=== PATIENT | female | born 1955 | race Caucasian/White ===

== ENCOUNTER → 2017-05-31 | Outpatient (CLI) | payer BC ==
[~2017-05-31] MED LIST: ENBREL50 MG/ML SC; LEXAPRO20 MG PO; MOTRIN 200200 MG/TAB PO; PRAVACHOL 40MG40 MG PO; SENNA8.6 MG PO; ST JOHN S WOR; SYNTHROID0.075 MG/T PO; XANAX .25M0.25 MG/TA PO
== END ==
LOC: MC.RAD 05-30 09:00
DX: Z12.31 Encounter for screening mammogram for malignant neoplasm of breast (principal)

== ENCOUNTER 2018-01-31 11:09 | Emergency (ER) | payer BC ==
[~2018-01-31] VITALS: Ht 167.6 cm; Wt 70.5 kg
[2018-01-31 11:44] LABS: BASO % 0.2 % (0.0-2.0); GRAN # 7.9 (1.4-6.5); GRAN % 87.7 % (42.2-75.2); HEMATOCRIT 40.5 % (37.0-47.0); HEMOGLOBIN 13.6 g/dl (12.5-16.0); LYMPH # 0.7 (1.2-3.4); LYMPH % 7.9 % (20.0-51.0); MEAN CELL VOLUME 82 fl (80.0-100.0); MEAN CORPUSCULAR HEMOGLOBIN 27 pg (27.0-31.0); MEAN CORPUSCULAR HGB CONC 34 g/dl (33.0-37.0); MEAN PLATELET VOLUME 9.1 fl (7.4-10.4); MONO # 0.3 (0.1-0.6); MONO % 3.6 % (1.7-9.3); PLATELET COUNT 267 K/mm3 (130-400); RED BLOOD COUNT 4.96 M/mm3 (4.10-5.30); REDCELL DISTRIBUTION WIDTH-CV 15.6 % (11.5-14.5)
[2018-01-31 11:54] LABS: ALBUMIN 4.2 gm/dL (3.5-5.0); BILIRUBIN,TOTAL 0.8 mg/dL (0.0-1.0); CALCIUM 8.9 mg/dL (8.4-10.2); CREATININE, serum 0.77 mg/dL (0.52-1.25); POTASSIUM 3.9 mmol/L (3.4-5.0); TOTAL PROTEIN 8.5 gm/dL (6.4-8.2)
[2018-01-31] MEDS ORDERED: HUMIRA40 MG/0.8 SQ (12:09)
[2018-01-31 13:22] LABS: COLLECTION METHOD CLEAN CATCH
[2018-01-31 13:24] VITALS: TEMP 99.6
[2018-01-31 13:28] LABS: MUCOUS Present /lpf; PH 5 (5-8); SQUAMOUS EPITHELIAL 0-2 /hpf; URINE APPEARANCE Hazy; URINE BACTERIA None Seen /hpf; URINE BILIRUBIN Negative (NEGATIVE); URINE BLOOD 2+ (NEGATIVE); URINE COLOR Yellow; URINE GLUCOSE Negative (NEGATIVE); URINE KETONE 2+ (NEGATIVE); URINE LEUKOCYTE ESTERASE Negative (NEGATIVE); URINE NITRATE Negative (NEGATIVE); URINE PROTEIN(semi-quant) 2+ (NEGATIVE); URINE RBC 20-50 /hpf
[2018-01-31] MEDS ORDERED: OMNICEF 300MG300 MG PO (13:34)
[2018-01-31 13:49] VITALS: BP 123/80; PULSE 100
== END 2018-01-31 13:50 | disposition home or self-care (01) ==
LOC: COL.ER 11:09
PROVIDERS: Emergency Medicine
DX: R50.9 Fever, unspecified (principal); R31.9 Hematuria, unspecified; E03.9 Hypothyroidism, unspecified; E78.00 Pure hypercholesterolemia, unspecified; R74.0 Nonspecific elevation of levels of transaminase and lactic acid dehydrogenase [LDH]
CPT/HCPCS: J7030

== ENCOUNTER 2018-02-03 17:35 | Inpatient (IN) | payer BC ==
[~2018-02-03] VITALS: Ht 167.6 cm; Wt 75.1 kg
[~2018-02-03 17:35] MED LIST changes: +HUMIRA40 MG/0.8 SQ; +OMNICEF 300MG300 MG PO
[2018-02-03 19:14] LABS: BASO % 0.3 % (0.0-2.0); GRAN # 2.9 (1.4-6.5); GRAN % 78.8 % (42.2-75.2); HEMOGLOBIN 11.2 g/dl (12.5-16.0); LYMPH # 0.5 (1.2-3.4); LYMPH % 12.6 % (20.0-51.0); MEAN CELL VOLUME 81 fl (80.0-100.0); MEAN CORPUSCULAR HEMOGLOBIN 28 pg (27.0-31.0); MEAN CORPUSCULAR HGB CONC 34 g/dl (33.0-37.0); MEAN PLATELET VOLUME 9.9 fl (7.4-10.4); MONO # 0.1 (0.1-0.6); MONO % 1.6 % (1.7-9.3); PLATELET COUNT 156 K/mm3 (130-400); RED BLOOD COUNT 4.08 M/mm3 (4.10-5.30); REDCELL DISTRIBUTION WIDTH-CV 16.1 % (11.5-14.5)
[2018-02-03 19:15] LABS: HEMATOCRIT 33.1 % (37.0-47.0)
[2018-02-03 19:19] LABS: ALBUMIN 3.1 gm/dL (3.5-5.0); BILIRUBIN,TOTAL 1.7 mg/dL (0.0-1.0); CALCIUM 8.2 mg/dL (8.4-10.2); CREATININE, serum 1.64 mg/dL (0.52-1.25); TOTAL PROTEIN 6.9 gm/dL (6.4-8.2)
[2018-02-03 22:42] LABS: INR 1.1 (0.8-3.0); PROTHROMBIN TIME 12.8 SECONDS (9.7-12.8)
[2018-02-04] VITALS (211 sets, daily range): BP systolic 84–111; BP diastolic 39–66; PULSE 100–133; TEMP 98–103.6; O2SAT 74–100
[2018-02-04 07:36] LABS: HEMOGLOBIN 10.7 g/dl (12.5-16.0); MEAN CELL VOLUME 80 fl (80.0-100.0); MEAN CORPUSCULAR HEMOGLOBIN 27 pg (27.0-31.0); MEAN CORPUSCULAR HGB CONC 34 g/dl (33.0-37.0); MEAN PLATELET VOLUME 10.2 fl (7.4-10.4); PLATELET COUNT 139 K/mm3 (130-400); RED BLOOD COUNT 3.91 M/mm3 (4.10-5.30); REDCELL DISTRIBUTION WIDTH-CV 15.9 % (11.5-14.5)
[2018-02-04 07:38] LABS: HEMATOCRIT 31.1 % (37.0-47.0)
[2018-02-04 07:44] LABS: ALANINE AMINOTRANSFERASE 286 U/L (9-52); ALBUMIN 2.8 gm/dL (3.5-5.0); ALKALINE PHOSPHATASE 635 U/L (50-136); ANION GAP 14 mmol/L (7-16); AST,SGOT 469 U/L (15-37); BILIRUBIN,TOTAL 1.7 mg/dL (0.0-1.0); BLOOD UREA NITROGEN 19 mg/dL (7-17); CALCIUM 7.5 mg/dL (8.4-10.2); CARBON DIOXIDE 17 mmol/L (22-30); CHLORIDE 101 mmol/L (98-107); CHOLESTEROL 117 mg/dL (120-200); CHOLESTEROL RISK RATIO 10.6; CREATININE, serum 1.26 mg/dL (0.52-1.25); GLUCOSE 81 mg/dL (74-106); POTASSIUM 3.1 mmol/L (3.4-5.0); SODIUM 131 mmol/L (137-145); TOTAL PROTEIN 6.2 gm/dL (6.4-8.2)
[2018-02-04 07:55] LABS: BILIRUBIN,DIRECT 1.4 mg/dL (0.0-0.4); TRIGLYCERIDE 710 mg/dL
[2018-02-04 09:03] LABS: BAND 57 % (0-10); LYMPHOCYTE 15 % (20.0-51.0); NEUTROPHILS 26 % (42.0-75.2); PLATELET ESTIMATE NORMAL (NORMAL); ROULEAUX 1+
[2018-02-04 12:39] LABS: MAGNESIUM 1.9 mg/dL (1.6-2.3)
[2018-02-04 12:52] LABS: HIV 1/2 Antibodies Non-Reactive; HIV-1p24 Antigen Non-Reactive
[2018-02-04 16:38] LABS: COLLECTION METHOD CLEAN CATCH
[2018-02-04 16:45] LABS: PH 6 (5-8); SQUAMOUS EPITHELIAL 0-2 /hpf; URINE APPEARANCE Clear; URINE BACTERIA None Seen /hpf; URINE BILIRUBIN Negative (NEGATIVE); URINE BLOOD 1+ (NEGATIVE); URINE COLOR Yellow; URINE GLUCOSE Negative (NEGATIVE); URINE KETONE Negative (NEGATIVE); URINE LEUKOCYTE ESTERASE Negative (NEGATIVE); URINE NITRATE Negative (NEGATIVE); URINE PROTEIN(semi-quant) Negative (NEGATIVE); URINE RBC 0-2 /hpf; URINE UROBILINOGEN Negative (NEGATIVE)
[2018-02-04 17:22] LABS: ARTERIAL BLD GAS O2 SATURATION 87.8 % (92-100); ARTERIAL BLD GAS TCO2 CT 14.8; ARTERIAL BLOOD GAS BASE EXCESS -9.1 (-2-2); ARTERIAL BLOOD GAS HCO3 14.1 meq/L (22-26); ARTERIAL BLOOD GAS PO2 52.3 mmHg (80-100); ARTERIAL BLOOD GAS pH 7.41 (7.35-7.45)
[2018-02-04 17:23] LABS: ARTERIAL BLOOD GAS PCO2 22.9 mmHg (35-45)
[2018-02-04 19:12] LABS: ANION GAP 10 mmol/L (7-16); BLOOD UREA NITROGEN 16 mg/dL (7-17); CARBON DIOXIDE 17 mmol/L (22-30); CHLORIDE 107 mmol/L (98-107); CREATININE, serum 1.24 mg/dL (0.52-1.25); GLUCOSE 81 mg/dL (74-106); MAGNESIUM 1.6 mg/dL (1.6-2.3); PHOSPHOROUS 2.8 mg/dL (2.5-4.5); SODIUM 134 mmol/L (137-145)
[2018-02-04 19:15] LABS: ACETAMINOPHEN < 10 ug/mL (10-30); SALICYLATE < 1.0 mg/dL
[2018-02-04 19:23] LABS: TROPONIN-I 0.015 ng/mL (0.000-0.034)
[2018-02-04 19:32] LABS: INR 1.6 (0.8-3.0); PROTHROMBIN TIME 17.9 SECONDS (9.7-12.8)
[2018-02-05] VITALS: BP 95/53; PULSE 98; TEMP 97.2
[2018-02-05 04:00] VITALS: BP 102/54; PULSE 110; TEMP 97.6
[2018-02-05 05:47] LABS: INR 1.2 (0.8-3.0); PROTHROMBIN TIME 13.9 SECONDS (9.7-12.8)
[2018-02-05 05:51] LABS: MEAN CELL VOLUME 80 fl (80.0-100.0); MEAN CORPUSCULAR HGB CONC 35 g/dl (33.0-37.0); PLATELET COUNT 97 K/mm3 (130-400); RED BLOOD COUNT 3.46 M/mm3 (4.10-5.30); REDCELL DISTRIBUTION WIDTH-CV 16.8 % (11.5-14.5)
[2018-02-05 05:52] LABS: HEMATOCRIT 27.5 % (37.0-47.0); HEMOGLOBIN 9.5 g/dl (12.5-16.0); MEAN CORPUSCULAR HEMOGLOBIN 27 pg (27.0-31.0)
[2018-02-05 05:57] LABS: ALBUMIN 2.3 gm/dL (3.5-5.0); BILIRUBIN,TOTAL 2.5 mg/dL (0.0-1.0); CALCIUM 7.4 mg/dL (8.4-10.2); CREATININE, serum 1.06 mg/dL (0.52-1.25); TOTAL PROTEIN 5.3 gm/dL (6.4-8.2)
[2018-02-05 08:00] VITALS: BP 129/73; PULSE 113; TEMP 97.1
[2018-02-05 08:04] LABS: BAND 50 % (0-10); LYMPHOCYTE 4 % (20.0-51.0); NEUTROPHILS 46 % (42.0-75.2); PLATELET ESTIMATE DECREASED (NORMAL)
[2018-02-05 12:00] VITALS: BP 107/81; PULSE 114; TEMP 98
[2018-02-05 16:00] VITALS: BP 105/78; PULSE 113; TEMP 97.9
[2018-02-05 20:00] VITALS: BP 126/92; PULSE 137; TEMP 98.2
[2018-02-06] VITALS: BP 135/95; PULSE 114; TEMP 97.7
[2018-02-06 04:00] VITALS: BP 129/80; PULSE 108; TEMP 98.1
[2018-02-06 05:17] LABS: MEAN CELL VOLUME 79 fl (80.0-100.0); MEAN CORPUSCULAR HGB CONC 35 g/dl (33.0-37.0); MEAN PLATELET VOLUME 10.4 fl (7.4-10.4); PLATELET COUNT 79 K/mm3 (130-400); RED BLOOD COUNT 3.57 M/mm3 (4.10-5.30); REDCELL DISTRIBUTION WIDTH-CV 16.8 % (11.5-14.5)
[2018-02-06 05:19] LABS: HEMATOCRIT 28.1 % (37.0-47.0); HEMOGLOBIN 9.7 g/dl (12.5-16.0); MEAN CORPUSCULAR HEMOGLOBIN 27 pg (27.0-31.0)
[2018-02-06 05:21] LABS: PROTHROMBIN TIME 11.7 SECONDS (9.7-12.8)
[2018-02-06 05:28] LABS: ALBUMIN 2.2 gm/dL (3.5-5.0); BILIRUBIN,TOTAL 2.2 mg/dL (0.0-1.0); CALCIUM 7.1 mg/dL (8.4-10.2); CREATININE, serum 0.89 mg/dL (0.52-1.25); POTASSIUM 3.1 mmol/L (3.4-5.0); TOTAL PROTEIN 5.2 gm/dL (6.4-8.2)
[2018-02-06 05:49] LABS: BAND 11 % (0-10); LYMPHOCYTE 24 % (20.0-51.0); NEUTROPHILS 63 % (42.0-75.2)
[2018-02-06 05:52] LABS: TARGET CELLS 1+
[2018-02-06 05:53] LABS: ANISOCYTOSIS 1+
[2018-02-06 07:12] VITALS: BP 137/89; PULSE 105; TEMP 98.8
[2018-02-06 08:15] LABS: PATHOLOGY DIFF REVIEW OK +
[2018-02-06 11:24] VITALS: BP 131/69; PULSE 101; TEMP 98.5
[2018-02-06 16:08] LABS: CSF APPEARANCE CLEAR; CSF COLOR COLORLESS; CSF RBC 18 /mm3 (0-0)
[2018-02-06 16:12] LABS: CSF MONONUCLEAR 100 % (70-100); CSF POLYMORPHONUCLEAR 0 % (0-6)
[2018-02-06 16:39] VITALS: BP 142/80; PULSE 102; TEMP 98.2
[2018-02-06 16:39] LABS: TOTAL PROTEIN,CSF 50 mg/dL (15-45)
[2018-02-06 20:57] VITALS: BP 135/69; PULSE 107; TEMP 98
[2018-02-07] VITALS (7 sets, daily range): BP systolic 109–145; BP diastolic 71–93; PULSE 60–108; TEMP 97.9–98.5
[2018-02-07 06:08] LABS: ALBUMIN 2.2 gm/dL (3.5-5.0); BILIRUBIN,TOTAL 1.3 mg/dL (0.0-1.0); CREATININE, serum 0.79 mg/dL (0.52-1.25); POTASSIUM 3.5 mmol/L (3.4-5.0); TOTAL PROTEIN 5.1 gm/dL (6.4-8.2)
[2018-02-07 06:13] LABS: MEAN CELL VOLUME 81 fl (80.0-100.0); MEAN CORPUSCULAR HGB CONC 34 g/dl (33.0-37.0); MEAN PLATELET VOLUME 11.3 fl (7.4-10.4); PLATELET COUNT 61 K/mm3 (130-400); REDCELL DISTRIBUTION WIDTH-CV 17.2 % (11.5-14.5)
[2018-02-07 06:14] LABS: HEMATOCRIT 27.4 % (37.0-47.0); HEMOGLOBIN 9.2 g/dl (12.5-16.0); MEAN CORPUSCULAR HEMOGLOBIN 27 pg (27.0-31.0)
[2018-02-07 06:49] LABS: INR 1.1 (0.8-3.0); PROTHROMBIN TIME 12.6 SECONDS (9.7-12.8)
[2018-02-07 07:46] LABS: BAND 5 % (0-10); HYPOCHROMIA 1+; LYMPHOCYTE 13 % (20.0-51.0); NEUTROPHILS 44 % (42.0-75.2); PLATELET ESTIMATE DECREASED (NORMAL)
[2018-02-07 16:47] LABS: PATHOLOGY DIFF REVIEW OK +
[2018-02-07 23:17] LABS: E.CHAFFEENSIS IGG AB <1:64 titer (<1:64)
[2018-02-07 23:22] LABS: ANAPLASMA PHAGOCYTOPHILA IGG <1:64 titer (<1:64)
[2018-02-08 05:33] VITALS: BP 140/85; PULSE 101; TEMP 97.4
[2018-02-08 07:49] LABS: MEAN CELL VOLUME 81 fl (80.0-100.0); MEAN CORPUSCULAR HGB CONC 33 g/dl (33.0-37.0); MEAN PLATELET VOLUME 11.8 fl (7.4-10.4); PLATELET COUNT 96 K/mm3 (130-400); REDCELL DISTRIBUTION WIDTH-CV 17.2 % (11.5-14.5)
[2018-02-08 07:50] LABS: HEMATOCRIT 27.4 % (37.0-47.0); HEMOGLOBIN 9.1 g/dl (12.5-16.0); MEAN CORPUSCULAR HEMOGLOBIN 27 pg (27.0-31.0)
[2018-02-08 07:57] LABS: CALCIUM 7.1 mg/dL (8.4-10.2); CREATININE, serum 0.7 mg/dL (0.52-1.25); POTASSIUM 3.3 mmol/L (3.4-5.0)
[2018-02-08 08:07] LABS: BAND 3 % (0-10); LYMPHOCYTE 38 % (20.0-51.0); METAMYELOCYTE 1 % (0-0); NEUTROPHILS 56 % (42.0-75.2); PLATELET ESTIMATE DECREASED (NORMAL)
[2018-02-08 08:08] LABS: HYPOCHROMIA 1+
[2018-02-08 08:21] VITALS: BP 142/87; PULSE 99; TEMP 98.1
[2018-02-08 11:43] VITALS: BP 116/74; PULSE 99; TEMP 97.7
[2018-02-08 16:45] VITALS: BP 139/75; PULSE 101; TEMP 98.9
[2018-02-08 19:30] VITALS: BP 124/72; PULSE 95; TEMP 98.5
[2018-02-08 23:22] VITALS: BP 118/59; PULSE 86; TEMP 98.3
[2018-02-09 04:19] VITALS: BP 132/79; PULSE 95; TEMP 98.4
[2018-02-09 05:53] LABS: MEAN CELL VOLUME 81 fl (80.0-100.0); MEAN CORPUSCULAR HGB CONC 33 g/dl (33.0-37.0); MEAN PLATELET VOLUME 11.6 fl (7.4-10.4); PLATELET COUNT 169 K/mm3 (130-400); RED BLOOD COUNT 3.49 M/mm3 (4.10-5.30); REDCELL DISTRIBUTION WIDTH-CV 17.1 % (11.5-14.5)
[2018-02-09 05:59] LABS: HEMATOCRIT 28.1 % (37.0-47.0); HEMOGLOBIN 9.3 g/dl (12.5-16.0); MEAN CORPUSCULAR HEMOGLOBIN 27 pg (27.0-31.0)
[2018-02-09 06:24] LABS: LYMPHOCYTE 57 % (20.0-51.0); MYELOCYTE 1 % (0-0); NEUTROPHILS 36 % (42.0-75.2)
[2018-02-09 06:25] LABS: ANISOCYTOSIS 1+; HYPOCHROMIA 1+; POIKILOCYTOSIS 1+
[2018-02-09 06:26] LABS: OVALOCYTES 1+
[2018-02-09 06:27] LABS: HYPERSEGMENTED POLYS PRESENT
[2018-02-09 06:28] LABS: ALBUMIN 2.4 gm/dL (3.5-5.0); BILIRUBIN UNCONJUGATED 0.1 mg/dL (0.0-1.1); BILIRUBIN,DIRECT 0.8 mg/dL (0.0-0.4); BILIRUBIN,TOTAL 0.8 mg/dL (0.0-1.0); CALCIUM 6.9 mg/dL (8.4-10.2); CREATININE, serum 0.59 mg/dL (0.52-1.25); TOTAL PROTEIN 5.4 gm/dL (6.4-8.2)
[2018-02-09 06:40] LABS: MAGNESIUM 2.2 mg/dL (1.6-2.3)
[2018-02-09 06:43] LABS: POTASSIUM 2.8 mmol/L (3.4-5.0)
[2018-02-09 08:57] VITALS: BP 145/71; PULSE 89; TEMP 98
[2018-02-09 11:22] VITALS: BP 129/71; PULSE 97; TEMP 98.3
[2018-02-09 16:19] VITALS: BP 135/83; PULSE 99; TEMP 98.1
[2018-02-09 20:14] VITALS: BP 131/78; PULSE 91; TEMP 97.6
[2018-02-09 23:37] VITALS: BP 135/83; PULSE 86; TEMP 98
[2018-02-10 04:01] VITALS: BP 143/88; PULSE 92; TEMP 97.7
[2018-02-10 06:06] LABS: MEAN CELL VOLUME 83 fl (80.0-100.0); MEAN CORPUSCULAR HGB CONC 32 g/dl (33.0-37.0); MEAN PLATELET VOLUME 10.9 fl (7.4-10.4); PLATELET COUNT 226 K/mm3 (130-400); RED BLOOD COUNT 3.38 M/mm3 (4.10-5.30); REDCELL DISTRIBUTION WIDTH-CV 17.3 % (11.5-14.5)
[2018-02-10 06:18] LABS: ALBUMIN 2.4 gm/dL (3.5-5.0); BILIRUBIN UNCONJUGATED 0.1 mg/dL (0.0-1.1); BILIRUBIN,DIRECT 0.7 mg/dL (0.0-0.4); BILIRUBIN,TOTAL 0.8 mg/dL (0.0-1.0); CREATININE, serum 0.52 mg/dL (0.52-1.25); POTASSIUM 3.9 mmol/L (3.4-5.0); TOTAL PROTEIN 5.4 gm/dL (6.4-8.2)
[2018-02-10 06:19] LABS: MAGNESIUM 2.1 mg/dL (1.6-2.3); PHOSPHOROUS 1.8 mg/dL (2.5-4.5)
[2018-02-10 06:33] LABS: HEMATOCRIT 28.2 % (37.0-47.0); HEMOGLOBIN 9.1 g/dl (12.5-16.0); MEAN CORPUSCULAR HEMOGLOBIN 27 pg (27.0-31.0)
[2018-02-10 07:02] VITALS: BP 146/85; PULSE 87; TEMP 98.6
[2018-02-10 08:17] LABS: LYMPHOCYTE 48 % (20.0-51.0); NEUTROPHILS 19 % (42.0-75.2)
[2018-02-10 08:18] LABS: TARGET CELLS 1+
[2018-02-10 08:19] LABS: ANISOCYTOSIS 1+
[2018-02-10 08:20] LABS: PLATELET ESTIMATE NORMAL (NORMAL)
[2018-02-10 12:24] VITALS: BP 145/78; PULSE 101; TEMP 99.1
[2018-02-10 15:23] VITALS: BP 130/73; PULSE 100; TEMP 98.7
[2018-02-10 21:30] VITALS: BP 147/76; PULSE 88; TEMP 98.5
[2018-02-11 03:40] VITALS: BP 126/68; PULSE 94; TEMP 98.9
[2018-02-11 06:34] LABS: ALBUMIN 2.6 gm/dL (3.5-5.0); BILIRUBIN,TOTAL 0.7 mg/dL (0.0-1.0); CALCIUM 7.2 mg/dL (8.4-10.2); CREATININE, serum 0.53 mg/dL (0.52-1.25); POTASSIUM 3.9 mmol/L (3.4-5.0); TOTAL PROTEIN 5.8 gm/dL (6.4-8.2)
[2018-02-11 07:42] VITALS: BP 125/66; PULSE 101; TEMP 98.2
[2018-02-11] MEDS ORDERED: CIPRO 500MG TA500 MG PO (11:47)
[2018-02-11] MEDS ORDERED: DOXYCYCLINE HY100 MG PO (11:48)
== END 2018-02-11 17:28 | disposition home health service (06) | DRG 871 ==
LOC: COL.ER 17:35 → ICU 21:25 → COL.ER 21:25 → MEDICAL 21:25 → ICU 02-04 12:34 → MEDICAL 02-04 12:34 → ICU 02-04 12:34 → MEDICAL 02-06 05:13 → ICU 02-06 05:13 → MEDICAL 02-06 05:13
PROVIDERS: Emergency Medicine; Hospitalist; Internal Medicine; Internal Medicine Infectious Disease; Internal Medicine Pulmonary Disease; Nurse Practitioner; Nurse Practitioner Family; Physician Assistant
PROC: 02HV33Z Insertion of Infusion Device into Superior Vena Cava, Percutaneous Approach (ICD-10-PCS; principal; 2018-02-04)
PROC: 009U3ZX Drainage of Spinal Canal, Percutaneous Approach, Diagnostic (ICD-10-PCS; 2018-02-06)
PROC: B01B1ZZ Fluoroscopy of Spinal Cord using Low Osmolar Contrast (ICD-10-PCS; 2018-02-06)
DX: A41.9 Sepsis, unspecified organism (principal); L89.153 Pressure ulcer of sacral region, stage 3; J96.00 Acute respiratory failure, unspecified whether with hypoxia or hypercapnia; R65.21 Severe sepsis with septic shock; N17.9 Acute kidney failure, unspecified; E86.0 Dehydration; R74.0 Nonspecific elevation of levels of transaminase and lactic acid dehydrogenase [LDH]; E87.6 Hypokalemia; E03.9 Hypothyroidism, unspecified; E87.70 Fluid overload, unspecified; P28.89 Other specified respiratory conditions of newborn; I95.9 Hypotension, unspecified; D69.6 Thrombocytopenia, unspecified; R53.81 Other malaise; L40.9 Psoriasis, unspecified
CPT/HCPCS: 99223-AI; 99231-AI; 99232-AI; 99239; A9284; C1751; J0133; J0692; J0696; J0744; J1644; J1720; J1940; J1956; J2185; J2270; J2405; J3370; J3480; J7030; J7040; J7050; J7060; J7120; Q9967

== ENCOUNTER → 2020-06-10 | Outpatient (CLI) | payer BC ==
[~2020-06-10] MED LIST changes: +CIPRO 500MG TA500 MG PO; +DOXYCYCLINE HY100 MG PO
== END ==
LOC: MC.RAD 14:23
DX: Z12.31 Encounter for screening mammogram for malignant neoplasm of breast (principal)

== ENCOUNTER → 2021-08-01 | Outpatient (CLI) | payer BC ==
[~2021-08-01] MED LIST changes: +ASPI325T6 PO; +MOTRIN 600600 MG/TAB PO; +NORCO 325 MG-51 TAB PO; +XELODA150 MG; +XELODA500 MG
== END ==
LOC: COL.VAS 07:12
DX: C24.1 Malignant neoplasm of ampulla of Vater (principal); I82.611 Acute embolism and thrombosis of superficial veins of right upper extremity

== ENCOUNTER 2021-08-04 05:24 | Day surgery (SDC) | payer BC ==
[~2021-08-04] VITALS: Ht 167.6 cm; Wt 63.0 kg
[~2021-08-04 05:24] MED LIST changes: -ASPI325T6 PO; -MOTRIN 600600 MG/TAB PO; -NORCO 325 MG-51 TAB PO; -XELODA150 MG; -XELODA500 MG
[2021-08-04] MEDS ORDERED: ASPI325T6 PO (05:57)
[2021-08-04] MEDS ORDERED: XELODA150 MG (05:58)
[2021-08-04] MEDS ORDERED: XELODA500 MG (05:58)
[2021-08-04 06:39] VITALS: BP 117/70; PULSE 90; TEMP 98.9
[2021-08-04 08:30] VITALS: BP 124/61; PULSE 83; TEMP 97.7
--- NOTE | 2021-08-04 08:30 | NUR ---
PT TO BAY 1 FROM [place]. RECEIVED REPORT FROM SUB ACUTE CARE NURSE AND SUPERVISOR TUMBLERS. VS OBTAINED. REORIENTED PT TO ROOM AND CALL LIGHT. CALL LIGHT WITHIN REACH. PT TOLERATING OJ. WILL CONTINUE TO MONITOR PT.
[2021-08-04] MEDS ORDERED: MOTRIN 600600 MG/TAB PO (08:38)
[2021-08-04] MEDS ORDERED: NORCO 325 MG-51 TAB PO (08:38)
[2021-08-04 08:45] VITALS: BP 123/63; PULSE 85
--- NOTE | 2021-08-04 08:45 | NUR ---
PT TOLERATING OJ AND MUFFIN. WILL CONTINUE TO MONITOR PT. DENIES ANY NEEDS AT THIS TIME.
[2021-08-04 09:00] VITALS: BP 128/62; PULSE 87
--- NOTE | 2021-08-04 09:00 | NUR ---
PT DENIES ANY PAIN AT THIS TIME. PT READY FOR DC. DAUGHTER AT BEDSIDE.
--- NOTE | 2021-08-04 09:10 | NUR ---
IV DC'D. PT TOLERATING WELL.
--- NOTE | 2021-08-04 09:15 | NUR ---
DISCHARGE EDUCATION COMPLETED WITH PT AND HER DAUGHTER. THEY VERBALIZED UNDERSTANDING OF HOME AND FOLLOW UP CARE. ALL QUESTIONS ANSWERED. DISCHARGE PAPERWORK GIVEN TO PT.
--- NOTE | 2021-08-04 09:30 | NUR ---
PT OFF UNIT PER WC WITH DAUGHTER. PT DISCHARGE TO HOME WITH DAUGHTER PER PERSONAL VEHICLE.
== END 2021-08-04 09:30 | disposition home or self-care (01) ==
LOC: SDCO 05:24
DX: C24.1 Malignant neoplasm of ampulla of Vater (principal); I80.9 Phlebitis and thrombophlebitis of unspecified site; Z98.890 Other specified postprocedural states; Z79.82 Long term (current) use of aspirin; Z79.899 Other long term (current) drug therapy; Z79.01 Long term (current) use of anticoagulants
CPT/HCPCS: C1788; J0690; J1100; J1644; J2250; J2405; J2704; J3010; J7120

== ENCOUNTER → 2021-11-06 | Outpatient (CLI) | payer BC ==
[~2021-11-06] MED LIST changes: +ASPI325T6 PO; +MOTRIN 600600 MG/TAB PO; +NORCO 325 MG-51 TAB PO; +XELODA150 MG; +XELODA500 MG
== END ==
LOC: COL.RAD 08:30
DX: C24.1 Malignant neoplasm of ampulla of Vater (principal); N28.1 Cyst of kidney, acquired; M41.80 Other forms of scoliosis, site unspecified
CPT/HCPCS: Q9967

== ENCOUNTER → 2022-08-08 | Outpatient (CLI) | payer BC | LOC: COL.RAD 10:02 | DX: C24.1 Malignant neoplasm of ampulla of Vater (principal); K76.0 Fatty (change of) liver, not elsewhere classified; N28.1 Cyst of kidney, acquired; I70.0 Atherosclerosis of aorta; Z90.49 Acquired absence of other specified parts of digestive tract | CPT/HCPCS: Q9967 ==

== ENCOUNTER → 2023-04-18 | Outpatient (CLI) | payer BC | LOC: COL.RAD 08:16 | DX: C17.9 Malignant neoplasm of small intestine, unspecified (principal); C24.1 Malignant neoplasm of ampulla of Vater; D50.8 Other iron deficiency anemias; Z98.890 Other specified postprocedural states | CPT/HCPCS: Q9967 ==

== ENCOUNTER 2023-11-08 12:07 | Day surgery (SDC) | payer BC ==
[2023-11-08] VITALS (7 sets, daily range): BP systolic 105–142; BP diastolic 65–76; PULSE 90–97; TEMP 97–97.9
[~2023-11-08] VITALS: Ht 167.6 cm; Wt 59.6 kg
[~2023-11-08 12:07] MED LIST changes: +Famotidine 20 MG TAB PO SCH; +LR 1,000 ML IV SCH
[2023-11-08] MEDS ORDERED: TIROSINT50 MC1 PO (13:11)
[2023-11-08] MEDS ORDERED: ZYRTEC 10MG10 MG PO (13:12)
[2023-11-08] MEDS ORDERED: IBU400 MG PO (13:13)
[2023-11-08] MEDS ORDERED: Rocuronium 50 MG/5 ML Multi-Dose VIAL ONE (13:17)
[2023-11-08] MEDS ORDERED: Ondansetron 4 MG/2 ML VIAL ONE (13:17)
[2023-11-08] MEDS ORDERED: fentaNYL 50 MCG/ML 5 ML VIAL ONE (13:17)
[2023-11-08] MEDS ORDERED: Lidocaine PF 2% (20 MG/ML) 5 ML VIAL ONE (13:17)
[2023-11-08] MEDS ORDERED: Ondansetron 4 MG/2 ML VIAL IV PRN ×2 (14:00→15:45)
[2023-11-08] MEDS ORDERED: fentaNYL 50 MCG/ML 1 ML SYRINGE/VIAL [PACU/SDC ONLY] IV PRN (14:00)
[2023-11-08] MEDS ORDERED: hydrALAZINE 20 MG/ML 1 ML VIAL IV PRN (14:00)
[2023-11-08] MEDS ORDERED: Ketorolac 15 MG/ML VIAL IV PRN (14:00)
[2023-11-08] MEDS ORDERED: Meperidine 50 MG/ML 1 ML VIAL IV PRN (14:00)
[2023-11-08] MEDS ORDERED: HYDROmorphone 1 MG/1 ML SYRINGE [PACU/SDC ONLY] IV PRN (14:00)
[2023-11-08] MEDS ORDERED: ePHEDrine 50 MG/ML VIAL ONE (14:13)
[2023-11-08] MEDS ORDERED: BUPivacaine PF 0.5% w EPI (1:200,000) 10 ML VIAL IJ ONE (14:21)
[2023-11-08] MEDS ORDERED: Ketorolac 30 MG/ML VIAL ONE (14:51)
[2023-11-08] MEDS ORDERED: Topical Skin Adhesive 1 EACH (1 ML) TOP ONE (15:10)
[2023-11-08] MEDS ORDERED: Morphine 4 MG/ML VIAL IV PRN (15:45)
[2023-11-08] MEDS ORDERED: Ibuprofen 600 MG TAB PO PRN (15:45)
--- NOTE | 2023-11-08 16:27 | NUR ---
NURSE HANDOFF COMPLETED IN PACU. PATIENT TRANSPORTED BACK TO ROOM 3 VIA CART, ALERT AND ORIENTED X3. DENIES PAIN, NAUSEA AND SHORTNESS OF BREATH. BREATHING REGULAR AND UNLABORED ON ROOM AIR. LUNG SOUNDS CLEAR, BILATERAL. SKIN WARM AND DRY. HEART TONES REGULAR, NO MURMUR. ABDOMINAL SURGICAL SITES WITH SKIN GLUE CLOSURE: CLEAN AND DRY WITH SKIN GLUE INTACT. SURROUNDING SKIN INTACT, NO REDNESS. PATIENT HAS NO COMPLAINTS AND STATES SHE FEELS "MUCH BETTER AFTER I GOT SICK EARLIER". PATIENT HAD JELLO AND WATER, NO DYSPHAGIA. CALL LIGHT IN REACH.
--- NOTE | 2023-11-08 17:50 | NUR ---
1720: DISCHARGE TEACHING COMPLETED WITH PRINTED EDUCATION AND INSTRUCTIONS SENT HOME WITH PATIENT. FOLLOW UP APPOINTMENT DATE, TIME AND LOCATION COMMUNICATED TO PATIENT. PATIENT VERBALIZED UNDERSTANDING. 1730: PATIENT AMBULATED TO RESTROOM WTIH STEADY GAIT AND VOIDED. 1748: CALLED THIS NURSE TO INFORM THAT HE HAD READ THE PATIENTS CHEST XRAY REPORT AND THAT THE PATIENT COULD BE DISCHARGED HOME. INFORMED PATIENT TO CALL IF SHORTNESS OF BREATH OR SIGNS OF INFECTION DEVELOP. 1749: PATIENT DENIES PAIN, NAUSEA AND SHORTNESS OF BREATH. IV REMOVED. GAUZE AND COBAN PLACED OVER SITE. 1750: PATIENT DISCHARGED HOME WITH TABBY CRISTINA, TRANSPORT.
== END 2023-11-08 17:50 | disposition home or self-care (01) ==
LOC: SDCO 12:07
DX: K36 Other appendicitis (principal); K21.9 Gastro-esophageal reflux disease without esophagitis; Z86.718 Personal history of other venous thrombosis and embolism; Z86.711 Personal history of pulmonary embolism; Z92.21 Personal history of antineoplastic chemotherapy; Z87.891 Personal history of nicotine dependence; Z79.82 Long term (current) use of aspirin; Z85.068 Personal history of other malignant neoplasm of small intestine; Z79.899 Other long term (current) drug therapy
CPT/HCPCS: J0690; J1885; J2405; J2704; J3010; J7120